=== PATIENT | male | born 2000 | race Caucasian/White ===

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

== ENCOUNTER 2021-02-04 14:11 | Emergency (ER) | payer OTHER, MEDICAID, SELFPAY ==
[2021-02-04 14:12] VITALS: BP 111/75; PULSE 115; RESP 16; TEMP 37.9; O2SAT 100; BMI 27.1
[2021-02-04 14:38] VITALS: BP 111/75; PULSE 115; RESP 16; TEMP 37.9; O2SAT 100
--- NOTE | 2021-02-04 15:18 | EX.ED.DYSGE1 ---
HPI History of Present Illness Chief Complaint: Abscess Informant: patient Narrative Narrative: Patient is a 20-year-old previously healthy male who presents to the emergency department for abscess to his right shoulder. He did have some fevers and chills at home. His initial symptoms started on Wednesday. He states that he has been draining it and beginning a large amount of purulent discharge out on Wednesday. He went to urgent care today and they referred him to the emergency department. Patient denies any other symptoms including any chest pain, shortness of breath or cough. No nausea/vomiting or diarrhea. No urinary symptoms. No rashes elsewhere. He denies any history of cellulitis or skin infections before in the past. He denies any headache or stiff neck. PFSH PFSH Home Medications cephalexin 500 mg PO Q6H 10 Days #40 cap 02/04/21 [Rx Last Taken Unknown] sulfamethoxazole-trimethoprim [Bactrim DS] 1 tab PO BID 10 Days #20 tab 02/04/21 [Rx Last Taken Unknown] Allergy/AdvReac Type Severity Reaction Status Date / Time No Known Allergies Allergy Verified 02/04/21 14:12 Social History Smoking Status: Current every day smoker tobacco type: cigarettes and e-cigarettes ROS ROS ED Constitutional Constitutional ED: Reports fever(s) Eyes Eyes: Denies change in vision ENT ENT ED: Denies epistaxis or rhinorrhea Cardiovascular Cardiovascular: Denies chest pain or palpitations Respiratory/Chest Respiratory/Chest: Denies cough, dyspnea or dyspnea on exertion Gastrointestinal Gastrointestinal: Denies abdominal pain, diarrhea, nausea or vomiting Genitourinary Genitourinary ED: Denies dysuria, hematuria or urinary frequency Musculoskeletal Musculoskeletal: Denies back pain or neck pain Integumentary Reports abscess Neurologic Neurologic: Denies dizziness, headache(s) or weakness EXAM Physical Exam Const Vital Signs: 02/04/21 14:12 02/04/21 14:38 02/04/21 15:31 Temperature 100.2 F H 100.2 F H 100.5 F H Temperature Source Oral Oral Oral Pulse Rate 115 H 115 H 106 H Respiratory Rate 16 16 18 Blood Pressure 111/75 111/75 108/62 Blood Pressure Mean 87 87 77 Pulse Ox 100 100 98 Oxygen Delivery Method Room Air Room Air Room Air 08/31/21 16:00 Temperature 99.6 F H Temperature Source Oral Pulse Rate 101 H Respiratory Rate 16 Blood Pressure 109/69 Blood Pressure Mean 82 Pulse Ox 98 Oxygen Delivery Method Room Air Positive well nourished and well developed General Appearance ED: well developed and NAD HEENT Reports normocephalic, head/scalp atraumatic and moist mucous membranes Eyes PERRL and EOMs intact bilaterally Neck supple General: Negative for tenderness Chest Wall inspection of chest normal Resp normal respiratory effort and clear to auscultation bilaterally Auscultation: Negative for rales, rhonchi or wheezes Cardio regular rhythm and no murmurs GI normal to inspection, nondistended, normoactive bowel sounds and non-tender Palpation: soft; Negative for guarding or rebound tenderness present Extremity normal to inspection General Extremety ED: Negative for edema or tenderness General Extremity: Negative for edema Neuro Sensorium / Orientation: alert Motor Exam: strength 5/5 throughout Psych mental status grossly normal Skin Skin Narrative: Area of cellulitis over the right scapula. This is warm and mildly tender to touch. No obvious fluctuating abscess underneath the skin. MDM MDM MDM Narrative Medical decision making narrative: Patient presents to the emergency department for abscess to right shoulder which he drained himself. He did get a large amount of purulent drainage out and feels like it was improving. It is tobacco wrapping machine tender to the touch so to urgent care. On arrival to the emergency department he is tachycardic and borderline febrile with a temperature of 100.2. He denies any other symptoms. Patient's lab work did show a high white blood cell count consistent with the infection. He does meet sepsis criteria. His lactic acid is within normal limits. The rest of the work-up did not reveal significant acute abnormality. After the Tylenol his temperature did come down as well as his heart rate. He is given a dose of IV antibiotics here. He is very well-appearing and I do not feel he does require inpatient antibiotics at this time. This was offered to him but he wants to try outpatient oral antibiotics. We will place him on Bactrim and Keflex. He otherwise is to follow-up with his PCP. Return precautions are reviewed with him. This includes developing recurrent fever, worsening of the cellulitis on the back or developing any other concerning infectious symptoms. This time he will be discharged home in stable condition. All questions were answered. Lab Data Labs: Laboratory Results - last 24 hr 02/04/21 02/04/21 02/04/21 15:00 15:00 15:00 WBC 16.0 H RBC 5.31 Hgb 14.4 Hct 43.2 MCV 81.4 MCH 27.1 MCHC 33.3 RDW Std Deviation 37.8 RDW Coeff of Oh 12.7 Plt Count 245 MPV 11.1 Immature Gran % (Auto) 0.400 Neut % (Auto) 84.5 H Lymph % (Auto) 5.5 L Howell % (Auto) 9.1 Eos % (Auto) 0.2 Baso % (Auto) 0.3 Absolute Neuts (auto) 13.5 H Absolute Lymphs (auto) 0.88 Nucleated RBC % 0 Sodium 136 Potassium 3.8 Chloride 102 Carbon Dioxide 29.0 Anion Gap 5 BUN 9 Creatinine 0.79 Estim Creat Clear Calc 163.71 Est GFR (MDRD) Af Amer 159 Est GFR (MDRD) Non-Af 132 BUN/Creatinine Ratio 11.4 Glucose 104 Lactic Acid 1.2 Calcium 9.5 Discharge Plan Triage Chief Complaint: Abscess ED Provider: Gen Moise Dx/Rx/DC Orders Clinical Impression: Cellulitis, Sepsis Instructions: ED Abscess Antibiotic Treatment Only Prescriptions: New sulfamethoxazole-trimethoprim [Bactrim DS] 800-160 mg tablet 1 tab PO BID 10 Days Qty: 20 RF: 0 cephalexin 500 mg capsule 500 mg PO Q6H 10 Days Qty: 40 RF: 0 Primary Care Provider: Care Physician,No Primary Referrals: Anna Oswald MD [STAFF PHYSICIAN] - 2 Days for wound check Care Physician,No Primary [Primary Care Provider] - Disposition Disposition: Home, Self Care
[2021-02-04 15:31] VITALS: BP 108/62; PULSE 106; RESP 18; TEMP 38.1; O2SAT 98
[2021-02-04 15:35] LABS: Absolute Lymphocyte Count 0.88 X10^3/uL (0.83-4.51); Absolute Neutrophil Count 13.5 X10^3/uL (2.0-7.7); Basophil# 0.05 X10^3/uL; Basophil% 0.3 % (0-1); Eosinophil# 0.04 X10^3/uL; Eosinophils% 0.2 % (0-5); Hematocrit 43.2 % (40-54); Hemoglobin 14.4 g/dL (13.0-16.5); Lymphocyte # 0.88 X10^3/ul (0.83-4.51); Lymphocyte % 5.5 % (19-41); Mean Corp Hgb Conc 33.3 g/dL (32-36); Mean Corpuscular Hgb 27.1 pg (27.0-32.0); Mean Corpuscular Volume 81.4 fL (80-94); Mean Platelet Vol. 11.1 fl (6.2-12.0); Monocyte# 1.45 X10^3/uL; Monocyte% 9.1 % (0-10); NRBC Flagged by Analyzer 0 % (0-5); Neutrophil # 13.53 X10^3/uL (2.7-7.7); Neutrophil % 84.5 % (47-70); Platelet Count 245 K/mm3 (150-450); RBC Distribution Width CV 12.7 % (11.6-14.6); RBC Distribution Width SD 37.8 fl (35.1-43.9); Red Blood Count 5.31 M/mm3 (4.6-6.2)
[2021-02-04] MEDS: Acetaminophen 325 MG Tablet 650 MG PO (15:36)
[2021-02-04 15:37] LABS: Anion Gap 5 (5-15); BUN 9 mg/dL (7-18); BUN/Creat Ratio 11.4 RATIO (10-20); Calcium,Total 9.5 mg/dL (8.5-10.1); Chloride 102 mmol/L (98-107); Creatinine, Serum 0.79 mg/dL (0.70-1.30); EST Glomerular Filtration Rate 132 mL/min (>60); Est Glom Filt Rate - Afr Amer 159 mL/min (>60); Estimated Creatinine Clearance 163.71 ml/min; Glucose 104 mg/dL (74-106); Potassium 3.8 mmol/L (3.5-5.1); Sodium Level 136 mmol/L (136-145)
[2021-02-04 15:43] LABS: Lactic Acid 1.2 mmol/L (0.4-1.9)
--- NOTE | 2021-02-04 15:48 | CM.ED ---
RAMESH Note: Referral Source: Case Find Referral Reason: No Primary Care Physician RAMESH met with patient. He said that he was seeing Dr. Sanderson and the MD had agreed to continue to treat him till age 21 however, when he recently called he was advised that he was not a patient anymore. RAMESH provided patient with list of [facility] Physician Directory and encouraged patient to establish with a PCP. No other issues or concerns voiced. RAMESH remains available. Plan: PCP resources provided. Beckie LE
[2021-02-04 16:00] VITALS: BP 109/69; PULSE 101; RESP 16; TEMP 37.6; O2SAT 98
[2021-02-04] MEDS: Cefazolin 2 GM in 0.9% Normal Saline 100 ML IV (16:10)
[2021-02-04] MEDS: 0.9% Normal Saline 1,000 ML 999 ML IV (16:13)
== END 2021-02-04 17:27 | disposition home or self-care (01) ==
PROVIDERS: Emergency Provider Emergency Medicine
DX: L02.413 Cutaneous abscess of right upper limb (principal); A41.9 Sepsis, unspecified organism; F17.210 Nicotine dependence, cigarettes, uncomplicated
CPT/HCPCS: 80048; 83605; 85025; 87040; 96365; 99283; J7030; J7040; A4216

== ENCOUNTER 2021-03-19 11:22 | Emergency (ER) | payer OTHER, MEDICAID, SELFPAY ==
[2021-03-19 11:22] VITALS: BP 109/66; PULSE 80; RESP 16; TEMP 36.8; O2SAT 100; BMI 23.0
--- NOTE | 2021-03-19 12:27 | RAD_ITS ---
STUDY: X-RAY - LEFT HAND, ATTENTION INDEX FINGER REASON FOR EXAM: Nail through left index finger. TECHNIQUE: 3 view(s) of the finger were obtained. COMPARISON: None. FINDINGS: Normal metacarpal head. Normal metacarpophalangeal joint. Normal proximal phalanx. Normal middle phalanx. There is a nail extending through the proximal metaphysis of the distal phalanx. Normal proximal interphalangeal joint. Normal distal interphalangeal joint. RAD/Finger(s) Min 2 Views IMPRESSION: Foreign body extending through the distal phalanx. Electronically Signed: Alexis Mcbride MD at 12:52 EDT Tel , Service support ,
[2021-03-19] MEDS: Ibuprofen 600 MG Tablet PO (12:42)
[2021-03-19] MEDS: Cefazolin 2 GM in 0.9% Normal Saline 100 ML IV (13:44)
[2021-03-19] MEDS: Lidocaine 1% (20 ml mdv) 20 ML Vial 10 ML INFILT (14:19)
--- NOTE | 2021-03-19 14:30 | RAD_ITS ---
STUDY: X-RAY - LEFT HAND, ATTENTION SECOND FINGER REASON FOR EXAM: Male, 20 years old. Injury, pain. Interval removal of the nail. TECHNIQUE: 3 view(s) of the finger were obtained. COMPARISON: Radiograph performed earlier the same day FINDINGS: No fracture or dislocation. There has been interval removal of the metallic nail from the distal second digit soft tissue. There is mild second digit soft tissue swelling. RAD/Finger(s) Min 2 Views IMPRESSION: There has been interval removal of the metallic nail from the distal second digit soft tissue. No fracture. mild second digit soft tissue swelling. Electronically Signed: Mynor Piña MD at 16:02 EDT Tel , Service support ,
--- NOTE | 2021-03-19 14:39 | EDS_ITS ---
HPI History of Present Illness Chief Complaint: Foreign Body Informant: patient Narrative Narrative: Patient is a 20-year-old male that denies any significant past medical history presenting with foreign body to his left index finger. Patient was using a nail gun when he misjudged the angle and the nail started a piece of wood and then went through his finger. He has some mild associated pain. No significant bleeding. States his last tetanus was this year. No associated numbness or tingling. No other complaints at this time. Did not take anything for pain prior to arrival. Tetanus Immunization: <5 years PFSH PFSH Medical History no medical history Home Medications cephalexin 500 mg PO TID #21 cap 03/19/21 [Rx Last Taken Unknown] hydrocodone-acetaminophen 1 tab PO Q8H PRN 3 Days #9 tab 03/19/21 [Rx Last Taken Unknown] Allergy/AdvReac Type Severity Reaction Status Date / Time No Known Allergies Allergy Verified 02/04/21 14:12 Social History Smoking Status: Current every day smoker tobacco type: cigarettes and e- cigarettes ROS ROS ED Constitutional Constitutional ED: Denies chills or fever(s) Eyes Eyes: Denies change in vision ENT ENT ED: Denies ear pain or rhinorrhea Cardiovascular Cardiovascular: Denies chest pain Respiratory/Chest Respiratory/Chest: Denies dyspnea Gastrointestinal Gastrointestinal: Denies abdominal pain Musculoskeletal Musculoskeletal: Reports other Details: left finger pain ; Denies myalgias Integumentary Reports Abrasions; Denies rash Neurologic Neurologic: Denies headache(s), paresthesias or weakness EXAM Physical Exam Const Vital Signs: 03/19/21 11:22 03/19/21 12:22 Temperature 98.3 F Temperature Source Temporal Pulse Rate 80 Respiratory Rate 16 Respiratory Effort Normal Non-Labored Respiratory Pattern Normal Blood Pressure 109/66 Blood Pressure Mean 80 Pulse Ox 100 Oxygen Delivery Method Room Air Positive well nourished and well developed General Appearance ED: well developed HEENT normocephalic and atraumatic Eyes PERRL Neck supple Chest Wall inspection of chest normal Resp normal respiratory effort Cardio regular rate, regular rhythm and no murmurs Extremity full ROM Left Upper Extremity: hand and digits inspection (Patient has a nail through the left distal phalanx. Some mild associated tenderness palpation. Otherwise appears neurovascularly intact) and tendon exam (Normal flexion and extension of the finger) Neuro oriented x3 Sensorium / Orientation: alert Sensory Exam: No sensory level loss detected Motor Exam: strength 5/5 throughout and muscle tone normal throughout Skin Skin Narrative: Entry and exit wound of the nail along the medial lateral aspect of the left distal first phalanx. There are 2 surrounding barbs that are visualized on either side of the wound coming off the nail. No involvement of the nailbed or interphalangeal joint MDM MDM MDM Narrative Medical decision making narrative: Patient evaluated after construction nail went through his left index finger. X-rays concern for some bony involvement. Digital nerve block performed with 1% lidocaine with epinephrine. The barbs were removed using wire cutters and the nail was pulled out. It came out very easily so I question how much it was actually affecting the bone. Patient is given dose of IV Ancef and I did discuss with orthopedics on-call, Dr. Pena. He will follow-up in the office. Patient is placed in a aluminum foam splint and bulky dressing. Fingers thoroughly irrigated. He is placed on empiric dose of Keflex. His tetanus is already up-to-date. He is also given a short course of [place] for pain control. Radiography X-Ray: - (Foreign body through the distal phalanx) Diagnostic Testing: Clinical Impression(s) from Imaging Studies Finger X-Ray 03/19/21 12:27 IMPRESSION: Foreign body extending through the distal phalanx. Electronically Signed: Alexis Mcbride MD at 12:52 EDT Tel , Service support , Discharge Plan Triage Chief Complaint: Foreign Body ED Provider: Iris Rojas Dx/Rx/DC Orders Clinical Impression: Foreign body of left index finger, Injury of finger by nail gun Instructions: ED Foreign Body, Soft Tissue (Removed) Prescriptions: New cephalexin 500 mg capsule 500 mg PO TID Qty: 21 RF: 0 hydrocodone-acetaminophen 5-325 mg tablet 1 tab PO Q8H PRN (Reason: pain) 3 Days Qty: 9 RF: 0 Primary Care Provider: Care Physician,No Primary Referrals: Mauri Pena DO [STAFF PHYSICIAN] - 2 Days for wound check Care Physician,No Primary [Primary Care Provider] - Activity Restrictions/Additional Instructions: You may also take ibuprofen as needed for pain. Return to work once cleared by orthopedics. Call tomorrow to make an appointment to be seen on Wednesday. Disposition Disposition: Home, Self Care Discharge Date/Time: 03/19/21 15:09
[2021-03-19 15:09] VITALS: BP 120/76; PULSE 78; RESP 16; O2SAT 100
== END 2021-03-19 15:09 | disposition home or self-care (01) ==
PROVIDERS: Emergency Provider Emergency Medicine
DX: S60.451A Superficial foreign body of left index finger, initial encounter (principal); F17.210 Nicotine dependence, cigarettes, uncomplicated; W29.4XXA Contact with nail gun, initial encounter
CPT/HCPCS: 73140; 96365; 96366; 99284; J7050; A4216